=== PATIENT | female | born 2005 | race Caucasian/White ===

== ENCOUNTER 2024-01-19 21:50 | Inpatient (IN) | payer OTHER, SELFPAY ==
[~2024-01-19] VITALS: Ht 170.2 cm; Wt 76.0 kg
[~2024-01-19 21:50] MED LIST: DOXY100C3 PO
[2024-01-19] MEDS: AZITHROMYCIN 250MG TABLET PO ONE (23:20)
[2024-01-19 23:26] LABS: HEMOGLOBIN 14.3 g/dl (12.0-15.5); MEAN CORPUSCULAR HEMOGLOBIN 29.3 pg (27.0-33.0); MEAN CORPUSCULAR VOLUME 86.1 fl (80.0-96.0); PLATELET COUNT, AUTOMATED 249 10^3/uL (150-450); RED BLOOD COUNT 4.88 10^6/uL (4.00-5.40); WHITE BLOOD COUNT 6.6 10^3/uL (4.0-10.0)
[2024-01-19 23:48] LABS: ETHYL ALCOHOL (ETHANOL) 0.005 % (0.000-0.010)
[2024-01-19 23:50] LABS: ALBUMIN 4.2 G/DL (3.2-5.2); ALKALINE PHOSPHATASE 109 U/L (46-116); ALT/SGPT 23 U/L (7.0-40); AST/SGOT 12 U/L (<34); BILIRUBIN,DIRECT 0.2 MG/DL (<0.4); BILIRUBIN,TOTAL 0.5 MG/DL (0.3-1.2); BLOOD UREA NITROGEN 15 MG/DL (9-23); CALCIUM LEVEL 9.9 MG/DL (8.5-10.1); CARBON DIOXIDE LEVEL 24 MMOL/L (20-31); CHLORIDE LEVEL 107 MMOL/L (98-107); CREATININE FOR GFR 0.71 MG/DL (0.55-1.30); GLUCOSE, FASTING 79 MG/DL (60-100); POTASSIUM SERUM 3.9 MMOL/L (3.5-5.1); SALICYLATE LEVEL < 3.0 MG/DL (<30); SODIUM LEVEL 138 MMOL/L (136-145); TOTAL PROTEIN 8.2 G/DL (5.7-8.2)
[2024-01-19 23:53] LABS: THYROID STIMULATING HORMONE 0.952 uIU/ML (0.48-4.17)
[2024-01-19 23:59] LABS: AMPHETAMINES LEVEL URINE NEGATIVE (NEGATIVE); BARBITURATES URINE NEGATIVE (NEGATIVE); BENZODIAZEPINES URINE NEGATIVE (NEGATIVE); CANNABINOIDS URINE NEGATIVE (NEGATIVE); COCAINE METABOLITE URINE NEGATIVE (NEGATIVE); METHADONE URINE NEGATIVE (NEGATIVE); OPIATES URINE NEGATIVE (NEGATIVE); PHENCYCLIDINE URINE NEGATIVE (NEGATIVE)
[2024-01-20 00:36] LABS: HCG, SERUM QUALITATIVE NEGATIVE (NEGATIVE)
[2024-01-20] MEDS ORDERED: MAALOX 30 ML SUSP *UDC PO PRN (05:20)
[2024-01-20] MEDS ORDERED: IBUPROFEN 400MG TAB PO PRN (05:20)
[2024-01-20] MEDS ORDERED: MOM 30ML SUSPENSION UDC PO PRN (05:20)
[2024-01-20] MEDS ORDERED: ACET325C5 PO (06:13)
[2024-01-20] MEDS ORDERED: EXCETAB32 PO (06:14)
[2024-01-20] MEDS ORDERED: HOME MED LIST COMPLETE! XX SCH ×2 (06:15→06:25)
[2024-01-20 07:01] VITALS: BP 124/68; TEMP 98.5; O2SAT 99
[2024-01-20] MEDS: ACETAMINOPHEN TAB 650MG DOSE (2X325MG) PO PRN (08:45)
[2024-01-20] MEDS: diphenhydrAMINE 25MG CAP PO PRN (13:46)
[2024-01-20 15:40] VITALS: BP 123/72; TEMP 98.3; O2SAT 99
[2024-01-21] MEDS: traZODone 50 MG TAB PO PRN (01:40)
[2024-01-21 06:39] VITALS: BP 110/59; TEMP 97.8; O2SAT 98
[2024-01-21 15:45] VITALS: BP 114/70; TEMP 98.2; O2SAT 98
[2024-01-21] MEDS: ESCITALOPRAM OXALATE 5MG TABLET (LEXAPRO) PO SCH (16:37)
[2024-01-21] MEDS: DOXYCYCLINE HYCLATE 100MG TABLET PO SCH (20:26)
[2024-01-22 06:48] VITALS: BP 116/70; TEMP 97.5; O2SAT 97
[2024-01-22 15:45] VITALS: BP 110/67; TEMP 97; O2SAT 98
[2024-01-23 06:15] VITALS: BP 118/68; TEMP 98.8; O2SAT 98
[2024-01-23] MEDS: ONDANSETRON 4MG ORAL DISINTEGRATING TAB PO SCH (12:49)
[2024-01-23 15:42] VITALS: BP 105/65; TEMP 98.1; O2SAT 98
[2024-01-23] MEDS: PILL CUTTER 1 EACH XX PRN (17:55)
[2024-01-24 06:20] VITALS: BP 137/70; TEMP 98.8; O2SAT 98
[2024-01-24] MEDS: ESCITALOPRAM OXALATE 10 MG TAB (LEXAPRO) PO SCH (08:35)
[2024-01-24 14:30] VITALS: BP 118/63; TEMP 98.1; O2SAT 96
[2024-01-25 06:14] VITALS: BP 116/73; TEMP 98.1; O2SAT 97
[2024-01-25 15:11] VITALS: BP 113/78; TEMP 97.3; O2SAT 96
[2024-01-26] MEDS ORDERED: LEXA1TAB PO (08:17)
== END 2024-01-26 10:59 | disposition home or self-care (01) | DRG 881 ==
LOC: M ED 21:50 → M ED INP 01-20 05:16 → M PSY 01-20 06:15
PROVIDERS: ADMIT Psychiatry & Neurology Psychiatry; ATTEND Psychiatry & Neurology Psychiatry
DX: F43.21 Adjustment disorder with depressed mood (principal); R45.851 Suicidal ideations; F81.89 Other developmental disorders of scholastic skills; Z63.8 Other specified problems related to primary support group; F17.290 Nicotine dependence, other tobacco product, uncomplicated; Z81.8 Family history of other mental and behavioral disorders

== ENCOUNTER 2024-02-07 13:17 | Inpatient (IN) | payer OTHER ==
[~2024-02-07] VITALS: Ht 170.2 cm; Wt 76.6 kg
[~2024-02-07 13:17] MED LIST changes: +ACET325C5 PO; +EXCETAB32 PO; +LEXA1TAB PO
[2024-02-07 13:44] LABS: HEMATOCRIT 39.1 % (36.0-47.0); HEMOGLOBIN 13.3 g/dl (12.0-15.5); MEAN CORPUSCULAR VOLUME 85.4 fl (80.0-96.0); PLATELET COUNT, AUTOMATED 188 10^3/uL (150-450); RED BLOOD COUNT 4.58 10^6/uL (4.00-5.40); WHITE BLOOD COUNT 5.2 10^3/uL (4.0-10.0)
[2024-02-07 14:15] LABS: ETHYL ALCOHOL (ETHANOL) < 0.003 % (0.000-0.010)
[2024-02-07 14:17] LABS: ALBUMIN 3.9 G/DL (3.2-5.2); ALKALINE PHOSPHATASE 99 U/L (46-116); ALT/SGPT 25 U/L (7.0-40); AST/SGOT 12 U/L (<34); BILIRUBIN,DIRECT 0.1 MG/DL (<0.4); BILIRUBIN,TOTAL 0.4 MG/DL (0.3-1.2); BLOOD UREA NITROGEN 11 MG/DL (9-23); CARBON DIOXIDE LEVEL 24 MMOL/L (20-31); CHLORIDE LEVEL 110 MMOL/L (98-107); CREATININE FOR GFR 0.65 MG/DL (0.55-1.30); GLUCOSE, FASTING 106 MG/DL (60-100); POTASSIUM SERUM 3.9 MMOL/L (3.5-5.1); SALICYLATE LEVEL < 3.0 MG/DL (<30); SODIUM LEVEL 140 MMOL/L (136-145); TOTAL PROTEIN 7.3 G/DL (5.7-8.2)
[2024-02-07 14:19] LABS: THYROID STIMULATING HORMONE 0.879 uIU/ML (0.48-4.17)
[2024-02-07 14:38] LABS: AMPHETAMINES LEVEL URINE NEGATIVE (NEGATIVE); BARBITURATES URINE NEGATIVE (NEGATIVE); BENZODIAZEPINES URINE NEGATIVE (NEGATIVE); CANNABINOIDS URINE NEGATIVE (NEGATIVE); COCAINE METABOLITE URINE NEGATIVE (NEGATIVE); METHADONE URINE NEGATIVE (NEGATIVE); OPIATES URINE NEGATIVE (NEGATIVE); PHENCYCLIDINE URINE NEGATIVE (NEGATIVE)
[2024-02-07 15:37] LABS: HCG, SERUM QUALITATIVE NEGATIVE (NEGATIVE)
[2024-02-07] MEDS ORDERED: LEXA1TAB PO (17:40)
[2024-02-07] MEDS ORDERED: HOME MED LIST COMPLETE! XX SCH (17:40)
[2024-02-07] MEDS: ACETAMINOPHEN TAB 650MG DOSE (2X325MG) PO ONE (19:53)
[2024-02-08] MEDS: ESCITALOPRAM OXALATE 10 MG TAB (LEXAPRO) PO SCH (08:28)
[2024-02-08] MEDS ORDERED: MAALOX 30 ML SUSP *UDC PO PRN (09:50)
[2024-02-08] MEDS ORDERED: MOM 30ML SUSPENSION UDC PO PRN (09:50)
[2024-02-08 11:23] VITALS: BP 125/69; TEMP 97.2; O2SAT 99
[2024-02-08 16:24] VITALS: BP 111/70; TEMP 98.3; O2SAT 98
[2024-02-09] MEDS: diphenhydrAMINE 25MG CAP PO PRN (01:49)
[2024-02-09] MEDS: traZODone 50 MG TAB PO PRN (01:49)
[2024-02-09 06:22] VITALS: BP 103/66; TEMP 98.9; O2SAT 100
[2024-02-09] MEDS: ESCITALOPRAM OXALATE 10 MG TAB (LEXAPRO) PO SCH (09:38)
[2024-02-09] MEDS: ACETAMINOPHEN TAB 650MG DOSE (2X325MG) PO PRN (14:09)
[2024-02-09] MEDS: IBUPROFEN 400MG TAB PO PRN (15:37)
[2024-02-09 16:34] VITALS: BP 111/67; TEMP 98.8; O2SAT 98
[2024-02-10 06:50] VITALS: BP 109/64; TEMP 98.2; O2SAT 100
[2024-02-11 06:33] VITALS: BP 129/65; TEMP 98.1; O2SAT 96
[2024-02-11 16:11] VITALS: BP 119/57; TEMP 97.8; O2SAT 95
[2024-02-11] MEDS: OLANZapine ORAL DISINTEGRATING TAB 5MG PO PRN (20:37)
[2024-02-12] VITALS (7 sets, daily range): BP systolic 74–122; BP diastolic 35–67; TEMP 96–98.2; O2SAT 98–100
[2024-02-13 06:23] VITALS: BP 106/61; TEMP 97.9; O2SAT 97
[2024-02-13 16:06] VITALS: BP 119/60; TEMP 97.8; O2SAT 98
[2024-02-14 06:19] VITALS: BP 106/67; TEMP 98.7; O2SAT 98
[2024-02-14 16:35] VITALS: BP 101/60; TEMP 97.8; O2SAT 98
[2024-02-15 06:14] VITALS: BP 127/83; TEMP 98.5; O2SAT 98
[2024-02-15 14:41] VITALS: BP 112/67; TEMP 97.8; O2SAT 98
[2024-02-16 06:23] VITALS: BP 112/70; TEMP 98.1; O2SAT 98
== END 2024-02-16 11:33 | disposition home or self-care (01) | DRG 885 ==
LOC: M ED 13:17 → M ED INP 02-08 09:49 → M PSY 02-08 11:12
PROVIDERS: ADMIT Psychiatry & Neurology Psychiatry; ATTEND Psychiatry & Neurology Psychiatry
DX: F33.9 Major depressive disorder, recurrent, unspecified (principal); R45.851 Suicidal ideations; Z81.8 Family history of other mental and behavioral disorders; F17.290 Nicotine dependence, other tobacco product, uncomplicated; Z79.899 Other long term (current) drug therapy; R73.01 Impaired fasting glucose; F60.3 Borderline personality disorder; Z91.148 Patient's other noncompliance with medication regimen for other reason

== ENCOUNTER 2024-02-22 19:40 | Inpatient (IN) | payer OTHER ==
[~2024-02-22] VITALS: Ht 172.7 cm; Wt 81.3 kg
[2024-02-22 20:05] LABS: HEMATOCRIT 41.9 % (36.0-47.0); HEMOGLOBIN 13.9 g/dl (12.0-15.5); MEAN CORPUSCULAR HEMOGLOBIN 29.3 pg (27.0-33.0); MEAN CORPUSCULAR HGB CONC 33.2 g/dl (32.0-36.5); MEAN CORPUSCULAR VOLUME 88.2 fl (80.0-96.0); PLATELET COUNT, AUTOMATED 270 10^3/uL (150-450); RED BLOOD COUNT 4.75 10^6/uL (4.00-5.40); WHITE BLOOD COUNT 9.5 10^3/uL (4.0-10.0)
[2024-02-22 20:29] LABS: AMPHETAMINES LEVEL URINE NEGATIVE (NEGATIVE); BARBITURATES URINE NEGATIVE (NEGATIVE); COCAINE METABOLITE URINE NEGATIVE (NEGATIVE)
[2024-02-22 20:30] LABS: BENZODIAZEPINES URINE NEGATIVE (NEGATIVE); CANNABINOIDS URINE NEGATIVE (NEGATIVE); METHADONE URINE NEGATIVE (NEGATIVE); OPIATES URINE NEGATIVE (NEGATIVE); PHENCYCLIDINE URINE NEGATIVE (NEGATIVE)
[2024-02-22 20:31] LABS: ETHYL ALCOHOL (ETHANOL) < 0.003 % (0.000-0.010)
[2024-02-22 20:33] LABS: HCG, SERUM QUALITATIVE NEGATIVE (NEGATIVE); SALICYLATE LEVEL < 3.0 MG/DL (<30)
[2024-02-22 20:34] LABS: ALBUMIN 4.2 G/DL (3.2-5.2); ALKALINE PHOSPHATASE 104 U/L (46-116); ALT/SGPT 122 U/L (7.0-40); AST/SGOT 56 U/L (<34); BILIRUBIN,DIRECT 0.2 MG/DL (<0.4); BILIRUBIN,TOTAL 0.6 MG/DL (0.3-1.2); BLOOD UREA NITROGEN 6 MG/DL (9-23); CALCIUM LEVEL 10.3 MG/DL (8.5-10.1); CARBON DIOXIDE LEVEL 26 MMOL/L (20-31); CHLORIDE LEVEL 108 MMOL/L (98-107); CREATININE FOR GFR 0.65 MG/DL (0.55-1.30); GLUCOSE, FASTING 88 MG/DL (60-100); POTASSIUM SERUM 3.6 MMOL/L (3.5-5.1); SODIUM LEVEL 140 MMOL/L (136-145); TOTAL PROTEIN 7.8 G/DL (5.7-8.2)
[2024-02-22 20:35] LABS: THYROID STIMULATING HORMONE 1.246 uIU/ML (0.48-4.17)
[2024-02-22] MEDS ORDERED: ACET-683 PO (21:07)
[2024-02-22] MEDS ORDERED: HOME MED LIST COMPLETE! XX SCH (21:10)
[2024-02-22] MEDS ORDERED: IBUPROFEN 400MG TAB PO PRN (23:10)
[2024-02-22] MEDS ORDERED: MOM 30ML SUSPENSION UDC PO PRN (23:10)
[2024-02-22] MEDS ORDERED: MAALOX 30 ML SUSP *UDC PO PRN (23:10)
[2024-02-22 23:55] VITALS: BP 143/87; TEMP 96.7; O2SAT 96
[2024-02-23 06:24] VITALS: BP 103/59; TEMP 99.1; O2SAT 99
[2024-02-23] MEDS: ESCITALOPRAM OXALATE 5MG TABLET (LEXAPRO) PO SCH (10:27)
[2024-02-23 13:45] VITALS: BP 81/43; O2SAT 100
[2024-02-23 13:50] VITALS: BP 137/97; O2SAT 100
[2024-02-23] MEDS ORDERED: MIDODRINE 5 MG TAB PO ONE (13:50)
[2024-02-23] MEDS ORDERED: NS 500 ML IV ONE (13:50)
[2024-02-23 14:13] LABS: HEMOGLOBIN A1c 4.6 % (4.0-6.0)
[2024-02-23 14:28] LABS: IRON (FE) 77 UG/DL (50-170); PERCENT SATURATION 23.1 % (13.2-45.0); TOTAL IRON BINDING CAPACITY 334 UG/DL (250-425)
[2024-02-23 14:29] LABS: FERRITIN 116.2 NG/ML (7.3-270.7); IMMUNOGLOBULIN G 1314 MG/DL (650-1600)
[2024-02-23 14:43] LABS: HEPATITIS B SURFACE ANTIGEN NEGATIVE (NEGATIVE)
[2024-02-23 14:54] VITALS: BP 124/79; TEMP 97.9; O2SAT 100
[2024-02-23 14:55] LABS: HIV 1&2 SCREEN NEGATIVE (NEGATIVE)
[2024-02-23 15:02] LABS: HEPATITIS B CORE ANTIBODY IGM NEGATIVE (NEGATIVE); HEPATITIS C VIRUS ABY INDEX 0.02 INDEX (<0.8)
[2024-02-23] MEDS: ACETAMINOPHEN TAB 650MG DOSE (2X325MG) PO PRN (16:40)
[2024-02-23 19:06] LABS: Trichomonas vaginalis (AMP) NOT DETECTED (NEGATIVE)
[2024-02-23 19:29] LABS: GC DNA AMPLIFICATION NEGATIVE (NEGATIVE)
[2024-02-23] MEDS: traZODone 50 MG TAB PO PRN (20:44)
[2024-02-24 09:48] LABS: ALBUMIN 3.8 G/DL (3.2-5.2); BILIRUBIN,DIRECT 0.2 MG/DL (<0.4); BILIRUBIN,TOTAL 0.5 MG/DL (0.3-1.2); TOTAL PROTEIN 7.3 G/DL (5.7-8.2)
[2024-02-24] MEDS: diphenhydrAMINE 25MG CAP PO PRN (11:28)
[2024-02-24 15:13] VITALS: BP 117/67; TEMP 97.5; O2SAT 100
[2024-02-24] MEDS: OLANZapine ORAL DISINTEGRATING TAB 5MG PO PRN (20:51)
[2024-02-25 06:59] VITALS: BP 109/66; TEMP 98; O2SAT 97
[2024-02-25] MEDS: FLUoxetine 20MG CAP PO SCH (08:45)
[2024-02-25] MEDS: ESCITALOPRAM OXALATE 5MG TABLET (LEXAPRO) PO SCH (08:45)
[2024-02-25 15:42] VITALS: BP 109/67; TEMP 97.9; O2SAT 98
[2024-02-26 06:18] VITALS: BP 118/69; TEMP 98.6; O2SAT 97
[2024-02-26 09:53] LABS: TRANSFERRIN 252 mg/dL (188-341)
[2024-02-26 13:07] LABS: ANA SCREEN, IFA NEGATIVE (NEGATIVE)
[2024-02-26 15:22] VITALS: BP 122/61; TEMP 98.3; O2SAT 98
[2024-02-26 15:56] LABS: ANTI-MITOCHONDRIAL ANTIBODY NEGATIVE (NEGATIVE)
[2024-02-27 06:43] VITALS: BP 125/76; TEMP 98.3; O2SAT 98
[2024-02-27] MEDS: LORazepam 2 MG/ML 1ML VIAL IM STA (12:20)
[2024-02-27 20:03] LABS: LYME TOTAL ANTIBODY CIA <= 0.90 Index (<=0.90)
[2024-02-28 06:26] VITALS: BP 116/67; TEMP 97; O2SAT 98
[2024-02-28] MEDS: FLUoxetine 10 MG CAP PO SCH (08:27)
[2024-02-28 09:07] LABS: ANTI-SMOOTH MUSCLE ANTIBODY < 20 U (<20)
[2024-02-28] MEDS: LORazepam 1 MG TAB PO PRN (12:01)
[2024-02-28 15:52] VITALS: BP 118/66; TEMP 98.7; O2SAT 97
[2024-02-29 06:34] VITALS: BP 136/82; TEMP 97.6; O2SAT 97
[2024-02-29 14:53] VITALS: BP 125/59; TEMP 98; O2SAT 98
[2024-03-01 06:29] VITALS: BP 124/69; TEMP 98; O2SAT 99
[2024-03-01 15:44] VITALS: BP 117/74; TEMP 98; O2SAT 98
[2024-03-02 06:06] VITALS: BP 115/67; TEMP 97.5; O2SAT 97
[2024-03-02 15:43] VITALS: BP 130/75; TEMP 98.1; O2SAT 100
[2024-03-03 06:22] VITALS: BP_SYST 118; BP_SYST 125; BP_DIAS 67; BP_DIAS 77; TEMP 97.3; O2SAT 99
[2024-03-03 15:59] VITALS: BP 113/65; TEMP 98.2; O2SAT 99
[2024-03-04 06:00] VITALS: BP 126/64; TEMP 98.3; O2SAT 100
[2024-03-04] MEDS ORDERED: PROZ10CA7 PO (10:03)
== END 2024-03-04 11:12 | disposition home or self-care (01) | DRG 885 ==
LOC: M ED 19:40 → M ED INP 23:09 → M PSY 23:50
PROVIDERS: ADMIT Psychiatry & Neurology Psychiatry; ATTEND Psychiatry & Neurology Psychiatry
DX: F33.9 Major depressive disorder, recurrent, unspecified (principal); R45.851 Suicidal ideations; F60.3 Borderline personality disorder; Z81.8 Family history of other mental and behavioral disorders; Z79.899 Other long term (current) drug therapy; R55 Syncope and collapse; F17.290 Nicotine dependence, other tobacco product, uncomplicated; R74.01 Elevation of levels of liver transaminase levels; K82.8 Other specified diseases of gallbladder; Z78.1 Physical restraint status

== ENCOUNTER 2024-03-09 10:25 | Inpatient (IN) | payer OTHER ==
[~2024-03-09 10:25] MED LIST changes: +ACET-683 PO; +PROZ10CA7 PO
[2024-03-09 11:20] LABS: HEMOGLOBIN 13.4 g/dl (12.0-15.5); MEAN CORPUSCULAR HEMOGLOBIN 29.7 pg (27.0-33.0); MEAN CORPUSCULAR HGB CONC 33.5 g/dl (32.0-36.5); MEAN CORPUSCULAR VOLUME 88.7 fl (80.0-96.0); PLATELET COUNT, AUTOMATED 212 10^3/uL (150-450); RED BLOOD COUNT 4.51 10^6/uL (4.00-5.40); WHITE BLOOD COUNT 5.6 10^3/uL (4.0-10.0)
[2024-03-09 11:37] LABS: AMPHETAMINES LEVEL URINE NEGATIVE (NEGATIVE)
[2024-03-09 11:38] LABS: BARBITURATES URINE NEGATIVE (NEGATIVE); BENZODIAZEPINES URINE NEGATIVE (NEGATIVE); CANNABINOIDS URINE NEGATIVE (NEGATIVE); COCAINE METABOLITE URINE NEGATIVE (NEGATIVE); METHADONE URINE NEGATIVE (NEGATIVE); OPIATES URINE NEGATIVE (NEGATIVE); PHENCYCLIDINE URINE NEGATIVE (NEGATIVE)
[2024-03-09 11:40] LABS: ETHYL ALCOHOL (ETHANOL) < 0.003 % (0.000-0.010)
[2024-03-09 11:42] LABS: ALBUMIN 3.7 G/DL (3.2-5.2); ALKALINE PHOSPHATASE 100 U/L (46-116); ALT/SGPT 175 U/L (7.0-40); AST/SGOT 52 U/L (<34); BILIRUBIN,DIRECT 0.2 MG/DL (<0.4); BILIRUBIN,TOTAL 0.7 MG/DL (0.3-1.2); BLOOD UREA NITROGEN 12 MG/DL (9-23); CALCIUM LEVEL 9.8 MG/DL (8.5-10.1); CARBON DIOXIDE LEVEL 27 MMOL/L (20-31); CHLORIDE LEVEL 109 MMOL/L (98-107); CREATININE FOR GFR 0.66 MG/DL (0.55-1.30); GLUCOSE, FASTING 78 MG/DL (60-100); HCG, SERUM QUALITATIVE NEGATIVE (NEGATIVE); POTASSIUM SERUM 3.9 MMOL/L (3.5-5.1); SALICYLATE LEVEL < 3.0 MG/DL (<30); SODIUM LEVEL 140 MMOL/L (136-145); TOTAL PROTEIN 7.3 G/DL (5.7-8.2)
[2024-03-09 11:44] LABS: THYROID STIMULATING HORMONE 1.087 uIU/ML (0.48-4.17)
[2024-03-09] MEDS ORDERED: ACETAMINOPHEN 325 MG TAB PO PRN (16:05)
[2024-03-09] MEDS ORDERED: MAALOX 30 ML SUSP *UDC PO PRN (16:05)
[2024-03-09] MEDS ORDERED: MOM 30ML SUSPENSION UDC PO PRN (16:05)
[2024-03-09] MEDS ORDERED: FLUO-290 PO (17:23)
[2024-03-09] MEDS ORDERED: ACET1TAB55 PO (17:23)
[2024-03-09] MEDS ORDERED: HOME MED LIST COMPLETE! XX SCH (17:25)
[2024-03-09 18:21] VITALS: BP 125/76; TEMP 98; O2SAT 100
[2024-03-09] MEDS: IBUPROFEN 400MG TAB PO PRN (18:39)
[2024-03-09] MEDS: OLANZapine ORAL DISINTEGRATING TAB 5MG PO ONE (21:21)
[2024-03-09] MEDS: traZODone 50 MG TAB PO PRN (21:21)
[2024-03-09] MEDS: diphenhydrAMINE 25MG CAP PO PRN (22:59)
[2024-03-10] MEDS: FLUoxetine 10 MG CAP PO ONE (08:22)
[2024-03-10] MEDS: FLUZONE VACCINE TRIVALENT PF(2024-25) 0.5ML SYRINGE IM.IMMUN ONE (08:23)
[2024-03-10] MEDS: OLANZapine ORAL DISINTEGRATING TAB 5MG PO PRN (10:56)
[2024-03-10 16:32] VITALS: BP 96/62; TEMP 98.1; O2SAT 100
[2024-03-11 06:13] VITALS: BP 108/71; TEMP 97.5; O2SAT 97
[2024-03-11 07:10] LABS: CHOLESTEROL RISK RATIO 4.73 (<5); HDL CHOLESTEROL 39.3 MG/DL (>40); LDL CHOLESTEROL 132.1 MG/DL (<100); NON-HDL-C 146.7 MG/DL
[2024-03-11] MEDS: FLUoxetine 10 MG CAP PO SCH (10:01)
[2024-03-11 14:35] VITALS: BP 120/69; TEMP 97.8; O2SAT 100
[2024-03-12 06:16] VITALS: BP 118/72; TEMP 97; O2SAT 98
[2024-03-12 16:55] VITALS: BP 112/66; TEMP 97.5
[2024-03-13 06:12] VITALS: BP 110/63; TEMP 97.8; O2SAT 98
[2024-03-13 15:19] VITALS: BP 117/72; TEMP 98.8; O2SAT 97
[2024-03-13] MEDS ORDERED: TRAZ-252 PO (20:27)
[2024-03-13] MEDS ORDERED: FLUO-290 PO (20:27)
[2024-03-14 06:43] VITALS: BP 105/56; TEMP 98.4; O2SAT 98
== END 2024-03-14 12:30 | disposition home or self-care (01) | DRG 885 ==
LOC: M ED 10:25 → M ED INP 16:03 → M PSY 17:47
PROVIDERS: ADMIT Psychiatry & Neurology Psychiatry; ATTEND Psychiatry & Neurology Psychiatry
DX: F33.9 Major depressive disorder, recurrent, unspecified (principal); F60.3 Borderline personality disorder; Z79.899 Other long term (current) drug therapy; F17.290 Nicotine dependence, other tobacco product, uncomplicated; E66.9 Obesity, unspecified; Z76.5 Malingerer [conscious simulation]

== ENCOUNTER 2024-03-16 08:31 | Inpatient (IN) | payer OTHER ==
[~2024-03-16] VITALS: Ht 172.7 cm; Wt 82.7 kg
[~2024-03-16 08:31] MED LIST changes: +ACET1TAB55 PO; +FLUO-290 PO; +TRAZ-252 PO
[2024-03-16 09:05] LABS: HEMATOCRIT 43.1 % (36.0-47.0); HEMOGLOBIN 14.2 g/dl (12.0-15.5); MEAN CORPUSCULAR HEMOGLOBIN 29.3 pg (27.0-33.0); MEAN CORPUSCULAR HGB CONC 32.9 g/dl (32.0-36.5); PLATELET COUNT, AUTOMATED 236 10^3/uL (150-450); RED BLOOD COUNT 4.84 10^6/uL (4.00-5.40); WHITE BLOOD COUNT 5.3 10^3/uL (4.0-10.0)
[2024-03-16 09:32] LABS: HCG, SERUM QUALITATIVE NEGATIVE (NEGATIVE)
[2024-03-16 09:34] LABS: AMPHETAMINES LEVEL URINE NEGATIVE (NEGATIVE); BARBITURATES URINE NEGATIVE (NEGATIVE); BENZODIAZEPINES URINE NEGATIVE (NEGATIVE); CANNABINOIDS URINE NEGATIVE (NEGATIVE); COCAINE METABOLITE URINE NEGATIVE (NEGATIVE); METHADONE URINE NEGATIVE (NEGATIVE); OPIATES URINE NEGATIVE (NEGATIVE); PHENCYCLIDINE URINE NEGATIVE (NEGATIVE)
[2024-03-16] MEDS: FLUoxetine 10 MG CAP PO SCH (09:34)
[2024-03-16 09:45] LABS: ETHYL ALCOHOL (ETHANOL) < 0.003 % (0.000-0.010)
[2024-03-16 09:47] LABS: ALBUMIN 3.8 G/DL (3.2-5.2); ALKALINE PHOSPHATASE 102 U/L (35-104); ALT/SGPT 120 U/L (7.0-40); AST/SGOT 57 U/L (<34); BILIRUBIN,DIRECT 0.1 MG/DL (<0.4); BILIRUBIN,TOTAL 0.5 MG/DL (0.3-1.2); BLOOD UREA NITROGEN 11 MG/DL (9-23); CALCIUM LEVEL 10.2 MG/DL (8.5-10.1); CARBON DIOXIDE LEVEL 27 MMOL/L (20-31); CHLORIDE LEVEL 108 MMOL/L (98-107); CREATININE FOR GFR 0.73 MG/DL (0.55-1.30); GLUCOSE, FASTING 79 MG/DL (60-100); POTASSIUM SERUM 3.9 MMOL/L (3.5-5.1); SALICYLATE LEVEL < 3.0 MG/DL (<30); SODIUM LEVEL 140 MMOL/L (136-145); TOTAL PROTEIN 7.6 G/DL (5.7-8.2)
[2024-03-16 09:49] LABS: THYROID STIMULATING HORMONE 2.188 uIU/ML (0.48-4.17)
[2024-03-16] MEDS ORDERED: TRAZ-252 PO (10:31)
[2024-03-16] MEDS ORDERED: HOME MED LIST COMPLETE! XX SCH (10:35)
[2024-03-16] MEDS ORDERED: diphenhydrAMINE 25MG CAP PO PRN (13:30)
[2024-03-16] MEDS ORDERED: MOM 30ML SUSPENSION UDC PO PRN ×2 (13:30→16:50)
[2024-03-16] MEDS ORDERED: ACETAMINOPHEN 325 MG TAB PO PRN (13:30)
[2024-03-16] MEDS ORDERED: IBUPROFEN 400MG TAB PO PRN ×2 (13:30→16:50)
[2024-03-16] MEDS ORDERED: MAALOX 30 ML SUSP *UDC PO PRN ×2 (13:30→16:50)
[2024-03-16] MEDS ORDERED: traZODone 50 MG TAB PO PRN (13:30)
[2024-03-16 14:40] VITALS: BP 128/76; TEMP 97.1; O2SAT 99
[2024-03-16] MEDS: traZODone 50 MG TAB PO PRN (20:15)
[2024-03-17 06:42] VITALS: BP 145/66; TEMP 99; O2SAT 97
[2024-03-17] MEDS ORDERED: FLUoxetine 10 MG CAP PO SCH (09:00)
[2024-03-17 15:55] VITALS: BP 115/65; TEMP 97.7; O2SAT 100
[2024-03-17] MEDS: FLUoxetine 10 MG CAP PO ONE (17:18)
[2024-03-17] MEDS: OLANZapine ORAL DISINTEGRATING TAB 5MG PO PRN (18:58)
[2024-03-17] MEDS: diphenhydrAMINE 25MG CAP PO PRN (20:21)
[2024-03-18 06:13] VITALS: BP 101/63; TEMP 97.8; O2SAT 99
[2024-03-18] MEDS: FLUoxetine 10 MG CAP PO SCH (08:07)
[2024-03-18] MEDS: FLUoxetine 10 MG CAP PO ONE (15:14)
[2024-03-18] MEDS: ACETAMINOPHEN 325 MG TAB PO PRN (16:14)
[2024-03-18 16:27] VITALS: BP 129/84; TEMP 98.7
[2024-03-19 06:53] VITALS: BP 121/68; TEMP 97.9; O2SAT 99
[2024-03-19] MEDS: FLUoxetine 20MG CAP PO SCH (08:04)
[2024-03-19 16:42] VITALS: BP 98/59; TEMP 98.7
[2024-03-20 06:37] VITALS: BP 131/62; TEMP 97.2; O2SAT 99
[2024-03-20] MEDS ORDERED: FLUO-365 PO (11:53)
== END 2024-03-20 12:57 | disposition home or self-care (01) | DRG 881 ==
LOC: M ED 08:31 → M ED INP 13:30 → M ED 13:47 → M PSY 15:03
PROVIDERS: ADMIT Psychiatry & Neurology Psychiatry; ATTEND Psychiatry & Neurology Child & Adolescent Psychiatry
DX: F32.9 Major depressive disorder, single episode, unspecified (principal); R45.851 Suicidal ideations; F60.3 Borderline personality disorder; Z79.899 Other long term (current) drug therapy; F17.290 Nicotine dependence, other tobacco product, uncomplicated; K76.0 Fatty (change of) liver, not elsewhere classified

== ENCOUNTER 2024-03-23 17:46 | Inpatient (IN) | payer OTHER ==
[~2024-03-23] VITALS: Ht 170.2 cm; Wt 84.5 kg
[~2024-03-23 17:46] MED LIST changes: +FLUO-365 PO
[2024-03-23 18:20] LABS: HEMATOCRIT 37.8 % (36.0-47.0); HEMOGLOBIN 12.9 g/dl (12.0-15.5); MEAN CORPUSCULAR HEMOGLOBIN 29.9 pg (27.0-33.0); MEAN CORPUSCULAR HGB CONC 34.1 g/dl (32.0-36.5); MEAN CORPUSCULAR VOLUME 87.7 fl (80.0-96.0); PLATELET COUNT, AUTOMATED 203 10^3/uL (150-450); RED BLOOD COUNT 4.31 10^6/uL (4.00-5.40); WHITE BLOOD COUNT 6.7 10^3/uL (4.0-10.0)
[2024-03-23 18:42] LABS: AMPHETAMINES LEVEL URINE NEGATIVE (NEGATIVE); BARBITURATES URINE NEGATIVE (NEGATIVE); BENZODIAZEPINES URINE NEGATIVE (NEGATIVE)
[2024-03-23 18:43] LABS: CANNABINOIDS URINE NEGATIVE (NEGATIVE); COCAINE METABOLITE URINE NEGATIVE (NEGATIVE); METHADONE URINE NEGATIVE (NEGATIVE); OPIATES URINE NEGATIVE (NEGATIVE); PHENCYCLIDINE URINE NEGATIVE (NEGATIVE)
[2024-03-23 18:45] LABS: HCG, SERUM QUALITATIVE NEGATIVE (NEGATIVE)
[2024-03-23 18:46] LABS: ALBUMIN 3.8 G/DL (3.2-5.2); ALKALINE PHOSPHATASE 91 U/L (35-104); ALT/SGPT 125 U/L (7.0-40); AST/SGOT 59 U/L (<34); BILIRUBIN,DIRECT 0.1 MG/DL (<0.4); BILIRUBIN,TOTAL 0.4 MG/DL (0.3-1.2); BLOOD UREA NITROGEN 13 MG/DL (9-23); CALCIUM LEVEL 9.7 MG/DL (8.5-10.1); CARBON DIOXIDE LEVEL 22 MMOL/L (20-31); CHLORIDE LEVEL 105 MMOL/L (98-107); CREATININE FOR GFR 0.59 MG/DL (0.55-1.30); GLUCOSE, FASTING 173 MG/DL (60-100); POTASSIUM SERUM 3.3 MMOL/L (3.5-5.1); SALICYLATE LEVEL < 3.0 MG/DL (<30); SODIUM LEVEL 137 MMOL/L (136-145); TOTAL PROTEIN 7.3 G/DL (5.7-8.2)
[2024-03-23] MEDS: POTASSIUM CHLORIDE 10MEQ SR TABLET PO ONE (19:06)
[2024-03-23] MEDS ORDERED: FLUO-365 PO (20:24)
[2024-03-23] MEDS ORDERED: DEPO150I12 IM (20:24)
[2024-03-23] MEDS ORDERED: HOME MED LIST COMPLETE! XX SCH (20:30)
[2024-03-23] MEDS: traZODone 50 MG TAB PO SCH (20:39)
[2024-03-23] MEDS ORDERED: MOM 30ML SUSPENSION UDC PO PRN (20:50)
[2024-03-23] MEDS: diphenhydrAMINE 25MG CAP PO PRN (22:58)
[2024-03-23] MEDS: traZODone 50 MG TAB PO PRN (22:58)
[2024-03-23 23:47] VITALS: BP 124/88; TEMP 97.8; O2SAT 100
[2024-03-24 06:17] VITALS: BP 106/67; TEMP 97.4; O2SAT 98
[2024-03-24] MEDS ORDERED: FLUoxetine 20MG CAP PO SCH (09:00)
[2024-03-24] MEDS: FLUoxetine 20MG CAP PO SCH (12:12)
[2024-03-24 15:31] VITALS: BP 118/61; TEMP 97.6; O2SAT 100
[2024-03-25 06:25] VITALS: BP 103/64; TEMP 97.3; O2SAT 98
[2024-03-25 16:47] VITALS: BP 106/56; TEMP 97.4; O2SAT 99
[2024-03-26 06:08] VITALS: BP 122/83; TEMP 97.8; O2SAT 97
[2024-03-26 15:53] VITALS: BP 114/62; TEMP 97.5; O2SAT 97
[2024-03-26] MEDS: OLANZapine ORAL DISINTEGRATING TAB 5MG PO PRN (21:33)
[2024-03-27 06:16] VITALS: BP 119/60; TEMP 97.2; O2SAT 96
[2024-03-27] MEDS: ARIPiprazole 2 MG TAB PO SCH (14:59)
[2024-03-27 15:09] VITALS: BP 123/67; TEMP 98.3; O2SAT 97
[2024-03-27] MEDS: MAALOX 30 ML SUSP *UDC PO PRN (19:20)
[2024-03-28 06:24] VITALS: BP 107/69; TEMP 98.5; O2SAT 99
[2024-03-28 15:31] VITALS: BP 125/57; TEMP 98.5; O2SAT 98
[2024-03-29 06:13] VITALS: BP 113/71; TEMP 97.9; O2SAT 98
[2024-03-29 14:32] VITALS: BP 130/76; TEMP 98.3; O2SAT 97
[2024-03-29] MEDS: ONDANSETRON 4MG ORAL DISINTEGRATING TAB PO ONE (14:38)
[2024-03-29 18:59] VITALS: BP 129/74; TEMP 97.3; O2SAT 98
[2024-03-30 06:24] VITALS: BP 123/80; TEMP 97.8; O2SAT 97
[2024-03-30] MEDS: ONDANSETRON 4MG ORAL DISINTEGRATING TAB PO PRN (13:09)
[2024-03-30 16:03] VITALS: BP 121/68; TEMP 98.5; O2SAT 97
[2024-03-30] MEDS: IBUPROFEN 400MG TAB PO PRN (16:03)
[2024-03-31 06:34] VITALS: BP 122/75; TEMP 97.9; O2SAT 96
[2024-03-31 15:39] VITALS: BP 131/70; TEMP 98.6; O2SAT 98
[2024-03-31 15:40] VITALS: BP 120/70; TEMP 98.6; O2SAT 98
[2024-03-31] MEDS: ACETAMINOPHEN 325 MG TAB PO PRN (17:02)
[2024-04-01 06:30] VITALS: BP 105/74; TEMP 97.8; O2SAT 99
[2024-04-01] MEDS ORDERED: ARIPiprazole 2 MG TAB PO ONE (09:35)
[2024-04-01] MEDS: ARIPiprazole 2 MG TAB PO SCH (09:39)
[2024-04-01 15:25] VITALS: BP 117/62; TEMP 98.1; O2SAT 100
[2024-04-02 06:37] VITALS: BP 108/71; TEMP 97.7; O2SAT 100
[2024-04-02 14:57] VITALS: BP 115/69; TEMP 98.8; O2SAT 97
[2024-04-03 06:37] VITALS: BP 118/70; TEMP 97.8; O2SAT 96
[2024-04-03] MEDS: ARIPiprazole 2 MG TAB PO SCH (09:05)
[2024-04-03] MEDS ORDERED: ABIL1TAB13 PO (11:02)
[2024-04-03] MEDS ORDERED: TRAZ-186 PO (18:44)
[2024-04-03] MEDS ORDERED: ARIP1TAB4 PO (18:44)
== END 2024-04-03 12:45 | disposition home or self-care (01) | DRG 883 ==
LOC: M ED 17:46 → M ED INP 20:49 → M PSY 22:16
PROVIDERS: ADMIT Psychiatry & Neurology Psychiatry; ATTEND Psychiatry & Neurology Psychiatry
DX: F60.3 Borderline personality disorder (principal); R45.851 Suicidal ideations; F32.A Depression, unspecified; F43.21 Adjustment disorder with depressed mood; Z56.0 Unemployment, unspecified; F17.290 Nicotine dependence, other tobacco product, uncomplicated; Z71.6 Tobacco abuse counseling; Z79.899 Other long term (current) drug therapy; Z63.8 Other specified problems related to primary support group; Z81.8 Family history of other mental and behavioral disorders; Z63.4 Disappearance and death of family member

== ENCOUNTER 2024-04-03 17:53 | Inpatient (IN) | payer OTHER ==
[~2024-04-03] VITALS: Ht 170.2 cm; Wt 83.7 kg
[~2024-04-03 17:53] MED LIST changes: +ABIL1TAB13 PO; +DEPO150I12 IM
[2024-04-03 18:27] LABS: HEMATOCRIT 38.2 % (36.0-47.0); HEMOGLOBIN 13.2 g/dl (12.0-15.5); MEAN CORPUSCULAR HGB CONC 34.6 g/dl (32.0-36.5); MEAN CORPUSCULAR VOLUME 86.8 fl (80.0-96.0); PLATELET COUNT, AUTOMATED 210 10^3/uL (150-450); WHITE BLOOD COUNT 6.2 10^3/uL (4.0-10.0)
[2024-04-03] MEDS ORDERED: ARIP1TAB4 PO (18:44)
[2024-04-03] MEDS ORDERED: TRAZ-186 PO (18:44)
[2024-04-03] MEDS ORDERED: HOME MED LIST COMPLETE! XX SCH (18:45)
[2024-04-03 18:54] LABS: ETHYL ALCOHOL (ETHANOL) 0.004 % (0.000-0.010)
[2024-04-03 18:56] LABS: ALBUMIN 3.7 G/DL (3.2-5.2); ALKALINE PHOSPHATASE 94 U/L (35-104); ALT/SGPT 40 U/L (7.0-40); AST/SGOT 15 U/L (<34); BILIRUBIN,DIRECT < 0.1 MG/DL (<0.4); BILIRUBIN,TOTAL 0.3 MG/DL (0.3-1.2); BLOOD UREA NITROGEN 13 MG/DL (9-23); CALCIUM LEVEL 9.3 MG/DL (8.5-10.1); CARBON DIOXIDE LEVEL 27 MMOL/L (20-31); CHLORIDE LEVEL 107 MMOL/L (98-107); CREATININE FOR GFR 0.65 MG/DL (0.55-1.30); GLUCOSE, FASTING 76 MG/DL (60-100); POTASSIUM SERUM 3.9 MMOL/L (3.5-5.1); SALICYLATE LEVEL < 3.0 MG/DL (<30); SODIUM LEVEL 141 MMOL/L (136-145); TOTAL PROTEIN 7.5 G/DL (5.7-8.2)
[2024-04-03 18:57] LABS: THYROID STIMULATING HORMONE 2.203 uIU/ML (0.48-4.17)
[2024-04-03 19:00] LABS: HCG, SERUM QUALITATIVE NEGATIVE (NEGATIVE)
[2024-04-03 19:42] LABS: AMPHETAMINES LEVEL URINE NEGATIVE (NEGATIVE); BARBITURATES URINE NEGATIVE (NEGATIVE); BENZODIAZEPINES URINE NEGATIVE (NEGATIVE); CANNABINOIDS URINE NEGATIVE (NEGATIVE); COCAINE METABOLITE URINE NEGATIVE (NEGATIVE); METHADONE URINE NEGATIVE (NEGATIVE); OPIATES URINE NEGATIVE (NEGATIVE); PHENCYCLIDINE URINE NEGATIVE (NEGATIVE)
[2024-04-03] MEDS ORDERED: IBUPROFEN 400MG TAB PO PRN (22:30)
[2024-04-03] MEDS ORDERED: MOM 30ML SUSPENSION UDC PO PRN (22:30)
[2024-04-03] MEDS ORDERED: ACETAMINOPHEN 325 MG TAB PO PRN (22:30)
[2024-04-03] MEDS: diphenhydrAMINE 25MG CAP PO PRN (23:56)
[2024-04-03] MEDS: traZODone 50 MG TAB PO PRN (23:56)
[2024-04-04 00:01] VITALS: BP 123/74; TEMP 97.9; O2SAT 100
[2024-04-04 06:28] VITALS: BP_SYST 112; BP_SYST 141; BP_DIAS 71; BP_DIAS 78; TEMP 97.9; O2SAT 96; O2SAT 98
[2024-04-04 15:13] VITALS: BP 110/64; TEMP 98.7; O2SAT 98
[2024-04-04] MEDS: FLUoxetine 20MG CAP PO SCH (16:31)
[2024-04-04] MEDS: OLANZapine ORAL DISINTEGRATING TAB 5MG PO PRN (16:31)
[2024-04-04] MEDS: ARIPiprazole 2 MG TAB PO SCH (16:31)
[2024-04-05 06:16] VITALS: BP 118/67; TEMP 98; O2SAT 99
[2024-04-05 11:12] VITALS: BP 106/64; TEMP 98; O2SAT 97
[2024-04-05 14:59] VITALS: BP 115/64; TEMP 98.1; O2SAT 97
[2024-04-06 06:53] VITALS: BP 130/77; TEMP 98.1; O2SAT 98
[2024-04-06 10:30] VITALS: BP 105/61; TEMP 98.6; O2SAT 99
[2024-04-06] MEDS: MAALOX 30 ML SUSP *UDC PO PRN (13:18)
[2024-04-06 14:54] VITALS: BP 123/60; TEMP 98.1; O2SAT 97
[2024-04-07 06:43] VITALS: BP 127/72; TEMP 97.9; O2SAT 99
[2024-04-07 15:11] VITALS: BP 116/68; TEMP 98.2; O2SAT 100
[2024-04-08 06:30] VITALS: BP 122/70; TEMP 98.3; O2SAT 98
[2024-04-08] MEDS ORDERED: TRAZ-186 PO (09:20)
[2024-04-08] MEDS ORDERED: FLUO-365 PO (09:20)
[2024-04-08] MEDS ORDERED: ABIL1TAB11 PO (09:20)
[2024-04-08 15:41] VITALS: BP 108/57; TEMP 97.4; O2SAT 98
[2024-04-09 06:41] VITALS: BP 142/83; TEMP 97.8; O2SAT 100
[2024-04-09 15:26] VITALS: BP 111/62; TEMP 98.6; O2SAT 95
== END 2024-04-09 17:05 | disposition home or self-care (01) | DRG 881 ==
LOC: M ED 17:53 → M ED INP 22:30 → M PSY 23:36
PROVIDERS: ADMIT Psychiatry & Neurology Psychiatry; ATTEND Psychiatry & Neurology Psychiatry
DX: F32.A Depression, unspecified (principal); R45.851 Suicidal ideations; F60.3 Borderline personality disorder; F41.9 Anxiety disorder, unspecified; Z76.5 Malingerer [conscious simulation]; Z81.8 Family history of other mental and behavioral disorders; Z72.0 Tobacco use; Z79.899 Other long term (current) drug therapy; Z63.4 Disappearance and death of family member; Z78.1 Physical restraint status; R45.1 Restlessness and agitation